=== PATIENT | female | born 1960 | race Caucasian/White ===

== ENCOUNTER 2016-12-02 10:25 | Day surgery (SDC) | payer BC ==
[2016-11-28 15:50] VITALS: BMI 25.3
[2016-12-02 10:45] VITALS: TEMP 97.9
[2016-12-02 12:15] VITALS: BP 113/79; PULSE 56
== END 2016-12-02 12:40 | disposition home or self-care (01) ==
LOC: FASU-ENDO 10:25
PROVIDERS: ATTEND Internal Medicine Gastroenterology
PROC: 0DJD8ZZ Inspection of Lower Intestinal Tract, Via Natural or Artificial Opening Endoscopic (ICD-10-PCS; principal; 2016-12-02 11:44)
DX: Z12.11 Encounter for screening for malignant neoplasm of colon (principal); Z80.0 Family history of malignant neoplasm of digestive organs